=== PATIENT | female | born 1965 | race Caucasian/White ===

== ENCOUNTER 2018-01-24 08:55 | Emergency (ER) | payer SELFPAY ==
[~2018-01-24] VITALS: Ht 160 cm; Wt 64.5 kg
[2018-01-24 09:16] VITALS: Ht 160 cm; Wt 64.5 kg
[2018-01-24] MEDS ORDERED: CYCLOBENZAPRINE10 MG PO (12:16)
[2018-01-24 12:47] VITALS: BP 145/92
== END 2018-01-24 12:48 | disposition home or self-care (01) ==
LOC: D.ER 08:55
DX: S93.402A Sprain of unspecified ligament of left ankle, initial encounter (principal); W18.30XA Fall on same level, unspecified, initial encounter; Y93.89 Activity, other specified; Y92.89 Other specified places as the place of occurrence of the external cause; M62.838 Other muscle spasm; F17.200 Nicotine dependence, unspecified, uncomplicated

== ENCOUNTER 2018-03-09 10:49 | Inpatient (IN) | payer SELFPAY ==
[~2018-03-09] VITALS: Ht 160 cm; Wt 68.0 kg
--- NOTE | ~2018-03-09 | CN ---
PATIENT NAME:ROHAN DEL REAL MEDICAL RECORD: [id number] : 61 LOCATION:[facility] [address] ADMIT DATE: 03/09/18 ACCOUNT: [id number] CONSULTING PHYSICIAN: SANDRA ESCOBAR MD REFERRING PHYSICIAN: KAMLESH SANCHEZ MD DATE OF CONSULTATION: 03/10/2018 CONSULT REQUESTING PHYSICIAN: Kamlesh Sanchez MD REASON FOR CONSULTATION: Questionable pneumonia, COPD exacerbation. HISTORY OF PRESENT ILLNESS: Ms. Del Real is a 52-year-old female who is a lifelong smoker. The patient came in with dizziness while workup showed that she has a possible pneumonia on the chest x-ray. According to the patient, she does not have any fever and chills, no night sweats. She has chronic smoker's cough with very little white color sputum production. There are no fever or chills, no night sweats. REVIEW OF SYSTEMS: As in history of present illness. PAST MEDICAL HISTORY: Possible COPD. PAST SURGICAL HISTORY: Nonsignificant. ALLERGIES: SHE IS ALLERGIC TO SULFA. MEDICATIONS: On aBIZinaBOX is reviewed. PERSONAL AND SOCIAL HISTORY: The patient is a chronic smoker, more than a pack a day. She is a nondrinker. FAMILY HISTORY: Noncontributory. PHYSICAL EXAMINATION: GENERAL: The patient is now lying comfortable. She is not in acute distress. VITAL SIGNS: The blood pressure is 140/89, pulse is 81, respirations 16, temperature 98.6, SPO2 is 98% on room air. HEENT: Conjunctivae are pink. Sclerae are not icteric. NECK: Supple, no JVD. CHEST: There is prolonged expiration with wheezing. HEART: Rhythm regular, normal sound, no murmur. ABDOMEN: Soft, bowel sounds present. No hepatosplenomegaly. RECTAL: Deferred. EXTREMITIES: No cyanosis, no clubbing, no pedal edema. SKIN: Warm, normal turgor. CENTRAL NERVOUS SYSTEM: The patient is awake and alert. There are no obvious cranial nerve abnormality. The gait is normal. IMAGING: Chest radiograph, there is blunting of the left costophrenic angle. Probably small pleural effusion. There is no consolidation. OTHER LABORATORY DATA: CBC: WBC is 7.9, hemoglobin is 12.4, hematocrit 36.8, the platelet count is 251. Chemistry: Sodium 142, potassium 3.4, BUN is 14, creatinine 0.7. CONSULT REPORT [id number] ROHAN DEL REAL IMPRESSION: 1. Acute exacerbation of COPD. 2. Tracheobronchitis, rule out pneumonia. 3. Vertigo. 4. Tobacco dependence syndrome. 5. Chronic cough. 6. Old lacunar infarct in basal ganglia. RECOMMENDATION: 1. Continue albuterol/ipratropium nebulizer. Start Brovana and budesonide nebulizer. 2. Methylprednisolone IV. 3. Continue empiric antibiotic for 7 days. 4. Repeat follow up labs and chest radiograph. 5. The patient was counseled to quit smoking. Dr. Sanchez, thank you for involving me in the care of Ms. Del Real. TRANSINT:[id number] Voice Confirmation ID: [id number] DOCUMENT ID: [id number] SANDRA ESCOBAR MD at 1234 CC: [id number] DICTATION DATE: 03/10/18 1629 QUILLER HAND: 03/10/18 1754 DIS IN 03/11/18 [id number] [place] [address]
--- NOTE | ~2018-03-09 | MORECARE ---
CASE MANAGEMENT DISCHARGE SUMMARY PATIENT: ROHAN DEL REAL UNIT: [id number] ADM DATE: 03/09/18 AGE: 52 : 61 SEX: F ROOM/BED: D.2223 AUTHOR: JIMMY,DOC PHYSICIAN: REFERRING PHYSICIAN: MANI CHANEL MD DATE OF SERVICE: 03/11/18 Discharge Plan Patient Name: ROHAN DEL REAL Facility: [facility]:[place] : 1965 Planned Disposition: Home Anticipated Discharge Date: 03/11/18 Discharge Date: 03/11/2018 Expected LOS: 2 Initial Reviewer: [id number] Initial Review Date: 03/11/2018 Generated: 03/11/18 5:59 pm Comments DCP- Discharge Planning Updated by [email or web address]: Katherin Lizarraga on 03/11/18 11:[address] Patient Name: ROHAN DEL REAL Admission Status: ER Accout number: [id number] Admission Date: 03-09-2018 : 1965 Admission Diagnosis:PNEUMONIA, UNSPECIFIED ORGANISM Attending: MANI CHANEL Current LOS: 2 Anticipated DC Date: 03-11-2018 Planned Disposition: Home Primary Insurance: UNINSURED DISCOUNT PLAN Discharge Planning Comments: CM met with patient to discuss discharge planning, she is alone in the room. States she is independent with ADL's. States she no longer drives, but her sons drive her where she needs to go. States she lives with her 2 adult sons. States she does not have any DME or use any community outside resources in the home. Declines need for DME or home health services. She will discharge home today and her son will drive her home. CM will continue to follow and assist with discharge planning/needs. Print Operator: Katherin Lizarraga DCPIA - Discharge Planning Initial Assessment Updated by [email or web address]: Katherin Lizarraga on 03/11/18 12:50 pm * Is the patient Alert and Oriented? Yes * How many steps to enter\exit or inside your home? 12/0 * PCP No PCP * Pharmacy [facility] [address] * Preadmission Environment Home with Family * ADLs Independent * Equipment None * List name and contact numbers for known caregivers / representatives who currently or will assist patient after discharge: Bernadrino garcia - [phone] * Verbal permission to speak to the caregivers and representatives has been obtained from the patient. Yes * Community resources currently utilized None * Additional services required to return to the preadmission environment? No * Can the patient safely return to the preadmission environment? Yes * Has this patient been hospitalized within the prior 30 days at any hospital? No Last DP export: 03/11/18 11:58 a Patient Name: ROHAN DEL REAL Page [id number] at 1700 All edits/amendments must be made on the electronic document DICTATION DATE: 03/11/181658 PLASTERER HELPER: SOHEILA 03/11/181658 RPT#: [id number] DC DATE:03/11/18 STATUS: DIS IN [facility] [address] [place] [address] END OF REPORT
--- NOTE | ~2018-03-09 | MORECARE ---
CASE MANAGEMENT DISCHARGE SUMMARY PATIENT: ROHAN DEL REAL UNIT: [id number] ADM DATE: 03/09/18 AGE: 52 : 61 SEX: F ROOM/BED: D.2223 AUTHOR: JIMMYDOC PHYSICIAN: REFERRING PHYSICIAN: MANI CHANEL MD DATE OF SERVICE: 03/11/18 Discharge Plan Patient Name: ROHAN DEL REAL Facility: [facility]:[place] : 1965 Planned Disposition: Home Anticipated Discharge Date: 03/11/18 Discharge Date: Expected LOS: 2 Initial Reviewer: [email or web address] Initial Review Date: 03/11/2018 Generated: 03/11/18 1:58 pm Comments DCP- Discharge Planning Updated by [email or web address]: Katherin Lizarraga on 03/11/18 11:[address] Patient Name: ROHAN DEL REAL Admission Status: ER Accout number: [id number] Admission Date: 03-09-2018 : 1965 Admission Diagnosis:PNEUMONIA, UNSPECIFIED ORGANISM Attending: MANI CHANEL Current LOS: 2 Anticipated DC Date: 03-11-2018 Planned Disposition: Home Primary Insurance: UNINSURED DISCOUNT PLAN Discharge Planning Comments: CM met with patient to discuss discharge planning, she is alone in the room. States she is independent with ADL's. States she no longer drives, but her sons drive her where she needs to go. States she lives with her 2 adult sons. States she does not have any DME or use any community outside resources in the home. Declines need for DME or home health services. She will discharge home today and her son will drive her home. CM will continue to follow and assist with discharge planning/needs. Sales Coach: Katherin Lizarraga DCPIA - Discharge Planning Initial Assessment Updated by [email or web address]: Katherin Lizarraga on 03/11/18 12:50 pm * Is the patient Alert and Oriented? Yes * How many steps to enter\exit or inside your home? 12/0 * PCP No PCP * Pharmacy [facility] * Preadmission Environment Home with Family * ADLs Independent * Equipment None * List name and contact numbers for known caregivers / representatives who currently or will assist patient after discharge: Bernardino garcia - [phone] * Verbal permission to speak to the caregivers and representatives has been obtained from the patient. Yes * Community resources currently utilized None * Additional services required to return to the preadmission environment? No * Can the patient safely return to the preadmission environment? Yes * Has this patient been hospitalized within the prior 30 days at any hospital? No Patient Name: ROHAN DEL REAL Page 30157 at 1258 All edits/amendments must be made on the electronic document DICTATION DATE: 03/11/18 1258 NURSING CARE ATTENDANT: SOHEILA 03/11/18 1258 RPT#: [id number] DC DATE: STATUS: ADM IN [facility] [address] [place] [address] END OF REPORT
[~2018-03-09 10:49] MED LIST: CYCLOBENZAPRINE10 MG PO
[2018-03-09 11:16] LABS: BASOPHILS 0.2 % (0-2); EOSINOPHILS 3.3 % (0-7); HEMATOCRIT 40.9 % (36.0-48.0); HEMOGLOBIN 13.8 g/dL (12-16); IMMATURE GRANULOCYTES 0.2 % (0-5); LYMPHOCYTES 22.3 % (15-50); MCH 32.5 pg (26.0-34.0); MCHC 33.7 g/dL (31.0-37.0); MCV 96.2 fL (80.0-100.0); MEAN PLATELET VOLUME 9.7 fL (7.4-10.4); MONOCYTES 7.5 % (2-11); NEUTROPHILS 66.5 % (40-80); PLATELET COUNT 169 10x3/uL (130-400); RBC 4.25 10x6/uL (4.00-5.40); RDW 13.4 % (11.5-14.5); WBC 8.3 10x3/uL (4.8-10.8)
[2018-03-09 11:21] LABS: ALBUMIN 3.5 g/dL (3.4-5.0); ALKALINE PHOSPHATASE 86 U/L (46-116); ALT (SGPT) 21 U/L (10-68); BILIRUBIN - TOTAL 0.33 mg/dL (0.2-1.3); CALC OSMOLALITY 281 mosm/kg (275-300); CALCIUM 8.9 mg/dL (8.5-10.1); CARBON DIOXIDE 32.1 mmol/L (21.0-32.0); CHLORIDE - SERUM 105 mmol/L (98-107); CREATININE - SERUM 0.7 mg/dL (0.6-1.3); GLUCOSE 101 mg/dL (74-106); PROTEIN - SERUM 7.8 g/dL (6.4-8.2); SODIUM 141 mmol/L (136-145); UREA NITROGEN 15 mg/dL (7-18); eGFR NON AFRICAN AMERICAN > 90 mL/min (90-120)
[2018-03-09 11:32] LABS: CKMB 0.5 U/L (0.0-3.6); CREATINE KINASE 85 UL (21-215); TROPONIN-I < 0.017 ng/mL (0.000-0.060)
[2018-03-09 22:14] VITALS: BMI 26.6
[2018-03-10 04:24] VITALS: BP 148/88
[2018-03-10 06:02] LABS: BASOPHILS 0.1 % (0-2); EOSINOPHILS 2.7 % (0-7); HEMATOCRIT 36.8 % (36.0-48.0); HEMOGLOBIN 12.4 g/dL (12-16); IMMATURE GRANULOCYTES 0.1 % (0-5); LYMPHOCYTES 33.1 % (15-50); MCH 32.3 pg (26.0-34.0); MCHC 33.7 g/dL (31.0-37.0); MCV 95.8 fL (80.0-100.0); MEAN PLATELET VOLUME 9.8 fL (7.4-10.4); MONOCYTES 8.4 % (2-11); NEUTROPHILS 55.6 % (40-80); RBC 3.84 10x6/uL (4.00-5.40); RDW 13.4 % (11.5-14.5); WBC 7.9 10x3/uL (4.8-10.8)
[2018-03-10 06:24] LABS: ALBUMIN 3.1 g/dL (3.4-5.0); ALKALINE PHOSPHATASE 76 U/L (46-116); ALT (SGPT) 20 U/L (10-68); BILIRUBIN - TOTAL 0.35 mg/dL (0.2-1.3); CALC OSMOLALITY 282 mosm/kg (275-300); CALCIUM 8.4 mg/dL (8.5-10.1); CARBON DIOXIDE 26.5 mmol/L (21.0-32.0); CHLORIDE - SERUM 107 mmol/L (98-107); CREATININE - SERUM 0.7 mg/dL (0.6-1.3); GLUCOSE 80 mg/dL (74-106); POTASSIUM - SERUM 3.4 mmol/L (3.5-5.1); PROTEIN - SERUM 6.9 g/dL (6.4-8.2); SODIUM 142 mmol/L (136-145); UREA NITROGEN 14 mg/dL (7-18); eGFR NON AFRICAN AMERICAN > 90 mL/min (90-120)
[2018-03-10 06:40] LABS: PLATELET COUNT 215 10x3/uL (130-400)
[2018-03-10 09:32] VITALS: BP 169/88
[2018-03-10 12:00] VITALS: BP 140/89
[2018-03-10 13:20] VITALS: Ht 160 cm; Wt 68.0 kg
[2018-03-10 21:35] VITALS: BP 137/84
[2018-03-11 05:12] VITALS: BP 132/79
[2018-03-11 06:28] LABS: BASOPHILS 0.1 % (0-2); EOSINOPHILS 0.1 % (0-7); HEMATOCRIT 37.3 % (36.0-48.0); HEMOGLOBIN 12.5 g/dL (12-16); IMMATURE GRANULOCYTES 0.1 % (0-5); MCH 32.6 pg (26.0-34.0); MCHC 33.5 g/dL (31.0-37.0); MCV 97.1 fL (80.0-100.0); MEAN PLATELET VOLUME 10.2 fL (7.4-10.4); MONOCYTES 1.1 % (2-11); NEUTROPHILS 91.6 % (40-80); PLATELET COUNT 200 10x3/uL (130-400); RBC 3.84 10x6/uL (4.00-5.40); RDW 13.6 % (11.5-14.5); WBC 9.6 10x3/uL (4.8-10.8)
[2018-03-11 06:50] LABS: ALBUMIN 3.3 g/dL (3.4-5.0); ALKALINE PHOSPHATASE 81 U/L (46-116); ALT (SGPT) 21 U/L (10-68); BILIRUBIN - TOTAL 0.18 mg/dL (0.2-1.3); CALC OSMOLALITY 282 mosm/kg (275-300); CALCIUM 8.7 mg/dL (8.5-10.1); CARBON DIOXIDE 23.7 mmol/L (21.0-32.0); CHLORIDE - SERUM 107 mmol/L (98-107); CREATININE - SERUM 0.7 mg/dL (0.6-1.3); GLUCOSE 156 mg/dL (74-106); POTASSIUM - SERUM 4.2 mmol/L (3.5-5.1); SODIUM 141 mmol/L (136-145); UREA NITROGEN 11 mg/dL (7-18); eGFR NON AFRICAN AMERICAN > 90 mL/min (90-120)
[2018-03-11 08:47] VITALS: BP 169/89
[2018-03-11] MEDS ORDERED: TESSALON PERLE100 MG PO (11:48)
[2018-03-11] MEDS ORDERED: LEVAQUIN750 MG PO (11:48)
[2018-03-11] MEDS ORDERED: NORVASC5 MG PO (11:48)
[2018-03-11] MEDS ORDERED: PREDNISONE10 MG PO (11:48)
[2018-03-11] MEDS ORDERED: VENTOLIN HFA18 GM INH (11:48)
[2018-03-11] MEDS ORDERED: FLORAJEN3 CAPS460 MG PO (11:48)
[2018-03-11] MEDS ORDERED: Nicoderm [PBKC] TRANSDERM (11:48)
[2018-03-11] MEDS ORDERED: MUCINEX600 MG PO (11:48)
[2018-03-11] MEDS ORDERED: PROTONIX40 MG PO (11:48)
[2018-03-11 12:46] VITALS: BP 160/80
== END 2018-03-11 15:30 | disposition home or self-care (01) | DRG 190 ==
LOC: D.ER 10:49 → D.MS 15:08 → D.EDHOLD 15:08 → D.MS 21:03
PROVIDERS: Family Medicine
DX: J44.0 Chronic obstructive pulmonary disease with (acute) lower respiratory infection (principal); J18.9 Pneumonia, unspecified organism; F17.213 Nicotine dependence, cigarettes, with withdrawal; R42 Dizziness and giddiness; J44.1 Chronic obstructive pulmonary disease with (acute) exacerbation; S93.402A Sprain of unspecified ligament of left ankle, initial encounter; X58.XXXA Exposure to other specified factors, initial encounter; Y93.9 Activity, unspecified; M62.838 Other muscle spasm; R55 Syncope and collapse